=== PATIENT | female | born 1955 | race Caucasian/White ===

== ENCOUNTER 2018-09-28 08:39 | Day surgery (SDC) | payer OTHER ==
[2018-09-28] MEDS: SOD CHLORIDE 0.9% 1,000 ML IV (08:00)
[~2018-09-28 08:39] MED LIST: CEFAZOLIN 2 GM/50 ML (PMX) 50 ML IVPB; EPHEDrine SULFATE 50 MG/5 ML SYG; SEVOFLURANE 15 MIN
[2018-09-28] MEDS ORDERED: ROPIVACAINE 0.5 % 30 ML VIAL (11:25)
[2018-09-28] MEDS ORDERED: MIDAZOLAM 1 MG/ML 2 ML INJ (11:25)
[2018-09-28] MEDS ORDERED: CEFAZOLIN 1 GM INJ (11:25)
[2018-09-28] MEDS ORDERED: PROPOFOL 20 ML (11:25)
[2018-09-28] MEDS ORDERED: FENTAnyl 50 MCG/ML VIAL (11:25)
[2018-09-28] MEDS ORDERED: ROCURONIUM 50 MG INJ (11:25)
[2018-09-28] MEDS ORDERED: LIDOCAINE 1%/EPI (1:100,000) (MDV) 20 ML (11:33)
[2018-09-28] MEDS ORDERED: BUPIVACAINE 0.25% (MPF) 30 ML INJ (11:33)
[2018-09-28] MEDS: POLYMYXIN/BACITRACIN 1L IRRIG IRR (12:16)
[2018-09-28] MEDS ORDERED: SCOPOLAMINE 1.5 MG PATCH (12:30)
[2018-09-28] MEDS ORDERED: ONDANSETRON 4 MG INJ (12:30)
[2018-09-28] MEDS ORDERED: KETOROLAC 30 MG INJ (12:30)
[2018-09-28] MEDS ORDERED: DEXAMETHASONE 4 MG/ML 5 ML INJ (12:30)
[2018-09-28] MEDS ORDERED: METOCLOPRAMIDE 10 MG INJ (12:30)
[2018-09-28] MEDS ORDERED: SUGAMMADEX SODIUM 200 MG/2 ML VIAL IV (12:42)
[2018-09-28] MEDS: ACETAMINOPHEN 1000MG/100ML IV 100 ML IVPB (14:59)
[2018-09-28] MEDS ORDERED: ONDANSETRON 4 MG INJ IV (15:00)
[2018-09-28] MEDS ORDERED: hydrALAzine 20 MG INJ IV (15:00)
[2018-09-28] MEDS ORDERED: FENTAnyl 50 MCG/ML VIAL IV ×2 (15:00)
[2018-09-28] MEDS ORDERED: ACETAMINOPHEN 1000MG/100ML IV 100 ML IVPB (15:00)
[2018-09-28] MEDS ORDERED: EPHEDrine SULFATE 50 MG/5 ML SYG IV (15:00)
[2018-09-28] MEDS ORDERED: LABETALOL HCL 20MG INJ IV (15:00)
[2018-09-28] MEDS: HYDROmorphONE 1 MG/ML SYG IV (15:00)
[2018-09-28] MEDS ORDERED: DIPHENHYDRAMINE 50 MG INJ IV (15:00)
[2018-09-28] MEDS ORDERED: HYDROmorphONE 1 MG/5 ML IV SYRINGE IV ×2 (15:00)
[2018-09-28] MEDS ORDERED: OXYCODONE/ACETAMINOPHEN (5/325) TAB PO (15:00)
[2018-09-28] MEDS ORDERED: METOCLOPRAMIDE 10 MG INJ IV (15:00)
[2018-09-28] MEDS ORDERED: MEPERIDINE 25 MG INJ IV (15:00)
== END 2018-09-28 18:09 | disposition home or self-care (01) ==
LOC: SDS 08:39
DX: K42.9 Umbilical hernia without obstruction or gangrene (principal); E11.9 Type 2 diabetes mellitus without complications; E03.9 Hypothyroidism, unspecified; E66.9 Obesity, unspecified; Z68.34 Body mass index [BMI] 34.0-34.9, adult
CPT/HCPCS: 49653; 82962; 88300; 88305